=== PATIENT | female | born 1995 | race Caucasian/White ===

== ENCOUNTER 2017-08-21 17:15 | Inpatient (IN) | payer OTHER ==
[~2017-08-21] VITALS: Ht 149.9 cm; Wt 97.7 kg
[~2017-08-21 17:15] MED LIST: EPP3/2 IM
[2017-08-21] MEDS ORDERED: LACTATED RINGER'S 1000ML 1,000 ML IV SCH ×2 (17:37→19:55)
[2017-08-21] MEDS ORDERED: LACTATED RINGER'S 1000ML 1,000 ML IV PRN (17:37)
[2017-08-21] MEDS ORDERED: BUPIVACAINE 0.25% 30 ML VIAL ONE (17:53)
[2017-08-21] MEDS ORDERED: EpHEDrine SULFATE INJ 50 MG/ML AMP ONE (17:54)
[2017-08-21] MEDS ORDERED: FENTANYL 2MCG/ML ROPIV 1.25MG/ML 100ML BAG ONE (17:54)
[2017-08-21] MEDS ORDERED: FENTANYL CITRATE INJ 50 MCG/1 ML 2 ML VIAL ONE (17:54)
[2017-08-21 17:59] LABS: HEMATOCRIT 34.9 % (37-47); HEMOGLOBIN 12.4 g/dL (12.0-16.0); MEAN CELL VOLUME 91.4 fL (80-100); MEAN CORPUSCULAR HEMOGLOBIN 32.5 pg (25-34); MEAN CORPUSCULAR HGB CONC 35.5 g/dl (32-36); MEAN PLATELET VOLUME 9.7 fL (7.4-10.4); PLATELET COUNT 158 K/uL (130-400); RED CELL DISTRIBUTION WIDTH CV 14.1 % (11.5-14.5); RED CELL DISTRIBUTION WIDTH SD 46.1 fL (36.4-46.3); WHITE BLOOD COUNT 9.24 K/uL (4.8-10.8)
[2017-08-21] MEDS ORDERED: NALOXONE HCL INJ 1 MG in SODIUM CHLORIDE 0.9% 1000ML 1,000 ML IV PRN (19:05)
[2017-08-21] MEDS ORDERED: LACTATED RINGER'S 1000ML 500 ML IV PRN (19:05)
[2017-08-21] MEDS ORDERED: NALBUPHINE HCL INJ 10 MG/ML AMP IV PRN (19:15)
[2017-08-21] MEDS ORDERED: ONDANSETRON INJ 2 MG/ML 2 ML VIAL IV PRN (19:15)
[2017-08-21] MEDS ORDERED: DiphenhydrAMINE HCL 50 MG/ML VIAL IV PRN (19:15)
[2017-08-21] MEDS ORDERED: NALOXONE HCL INJ 0.4 MG/1 ML VIAL/CARP IV PRN (19:15)
[2017-08-21] MEDS ORDERED: FENTANYL 2MCG/ML ROPIV 1.25MG/ML 100ML BAG EPI PRN (19:15)
[2017-08-21] MEDS ORDERED: EpHEDrine SULFATE INJ 50 MG/ML AMP IV PRN (19:15)
[2017-08-21] MEDS ORDERED: OXYTOCIN 30 UNITS/500ML NSS IV ONE (19:46)
[2017-08-21] MEDS ORDERED: METHYLERGONOVINE MALEATE 0.2 MG/ML AMP ONE (19:48)
[2017-08-21] MEDS: DOCUSATE SODIUM 100 MG CAP PO SCH (20:00)
[2017-08-21] MEDS ORDERED: OXYTOCIN 30 UNITS/500ML NSS IV PRN (20:00)
[2017-08-21] MEDS ORDERED: LANOLIN OINT EXT PRN (20:00)
[2017-08-21] MEDS ORDERED: ACETAMINOPHEN 325 MG TAB PO PRN (20:00)
[2017-08-21] MEDS ORDERED: HYDROCORTISONE ACETATE 25 MG SUPP PR PRN (20:00)
[2017-08-21] MEDS ORDERED: MEASLES, MUMPS & RUBELLA VIRUS VIAL SQ. ONE (20:00)
[2017-08-21] MEDS ORDERED: METHYLERGONOVINE MALEATE 0.2 MG/ML AMP IM ONE (20:00)
[2017-08-21] MEDS ORDERED: DIPHTHERIA/TETANUS/PERTUSSIS 0.5 ML SYR/VIAL IM. ONE (20:00)
[2017-08-21] MEDS ORDERED: BENZOCAINE 20% AER SPR 82.5 GM CAN EXT PRN (20:00)
[2017-08-21] MEDS ORDERED: SUPERCREAM 0.870 % 15GM JAR EXT PRN (20:00)
[2017-08-21] MEDS ORDERED: OXYCODONE/ACETAMINOPHEN 5-325 TAB PO PRN (20:00)
--- NOTE | 2017-08-21 20:24 | Anesthesia Procedure Note ---
Anesthesia Epidural Removal Nt Date & Time August 21, 2017 at 20:23 Vital Signs Pain Intensity: 10.0 Notes Mental Status: alert / awake / arousable, participated in evaluation Nausea / Vomiting: adequately controlled Pain: adequately controlled Airway Patency, RR, SpO2: stable & adequate BP & HR: stable & adequate Hydration State: stable & adequate Neuraxial Anesthesia: was administered Anesthetic Complications: no major complications apparent, pt satisfied with anesthetic care Epidural: removed without complications, with tip intact
--- NOTE | 2017-08-21 20:51 | DELIVERY SUMMARY ---
DATE OF OPERATION: 08/21/2017 DATE OF DELIVERY: 08/21/2017. TIME OF DELIVERY OF BABY: 19:41 p.m. TIME OF DELIVERY OF PLACENTA: 19:45 p.m. DETAILS OF DELIVERY: Patient was found to be fully dilated and desired to push. She pushed through with 3 contractions and then delivered the head without difficulty. Shoulders were delivered with minimal traction. Baby was handed off to the mother where mouth and nose were suctioned. Cord was clamped x2 and cut. It was 3-vessel cord. Cord blood was obtained. Then the perineum and vagina were checked for lacerations. There was a superficial first degree laceration superior to the urethral opening between the labia minora fusion and then placenta was found to be in the vagina and delivered spontaneously as intact and complete. Uterus was explored and was found to be empty. Fundus was firm. EBL was 300 ml. That laceration was repaired with 3-0 Vicryl on the SH needle with figure-of- eight stitches x2. Excellent hemostasis was achieved. Mom and baby tolerated the procedure well. Sponge, lap, and needle counts were correct x2. Baby was a viable female infant. Apgars 8/9. No complications happened and I was present during whole procedure. I attest to the content of the Intraoperative Record and any orders documented therein. Any exceptions are noted below. MTDD
[2017-08-21 21:08] VITALS: Ht 149.9 cm; Wt 97.7 kg
[2017-08-21 23:25] VITALS: BP 130/69; PULSE 90; TEMP 36.5
[2017-08-21] MEDS: IBUPROFEN 600 MG TAB PO PRN (23:29)
[2017-08-22 03:50] VITALS: BP 110/56; PULSE 65; TEMP 36.9
[2017-08-22] MEDS: IBUPROFEN 600 MG TAB PO PRN ×4 (04:12→23:45)
[2017-08-22 07:08] LABS: HEMATOCRIT 32.3 % (37-47); HEMOGLOBIN 11.5 g/dL (12.0-16.0)
[2017-08-22 07:58] VITALS: BP 113/64; PULSE 65; TEMP 36.5
[2017-08-22] MEDS: PRENATAL VITAMIN TAB PO SCH (08:45)
[2017-08-22] MEDS: FERROUS SULFATE 325 MG TAB PO SCH (08:45)
[2017-08-22] MEDS: DOCUSATE SODIUM 100 MG CAP PO SCH ×2 (08:45→19:48)
--- NOTE | 2017-08-22 09:28 | OB/GYN Progress Note ---
SUPERVISOR Progress Note Date of Service August 22, 2017. Subjective conversation w/ patient, physical exam Ambulation: ambulating normally Voiding: no voiding problems Passing Gas: Yes Diet Tolerance: Regular Diet Lochia: Small Feeding Type: Breast Feeding Objective Vital Signs Date Time Temp Pulse Resp B/P (MAP) Pulse Ox O2 Delivery O2 Flow Rate FiO2 08/22/17 07:58 36.5 65 20 113/64 (80) Room Air 08/22/17 07:30 Room Air 08/22/17 03:50 36.9 65 18 110/56 (74) Room Air 08/21/17 23:25 36.5 90 16 130/69 (89) Room Air 08/21/17 23:25 Room Air Physical Exam General Appearance: WELL-APPEARING, NO APPARENT DISTRESS Abdomen: non tender, soft, no organomegaly, no pulsatile mass Fundus: Firm Extremities: non-tender, normal inspection, no pedal edema Laboratory Results Last 24 Hours Test 08/21/17 17:46 08/22/17 06:14 White Blood Count 9.24 K/uL Red Blood Count 3.82 M/uL Hemoglobin 12.4 g/dL 11.5 g/dL Hematocrit 34.9 % 32.3 % Mean Corpuscular Volume 91.4 fL Mean Corpuscular Hemoglobin 32.5 pg Mean Corpuscular Hemoglobin Concent 35.5 g/dl RDW Standard Deviation 46.1 fL RDW Coefficient of Variation 14.1 % Platelet Count 158 K/uL Mean Platelet Volume 9.7 fL Assessment and Plan Post- Day Number: 1 Continue Routine Care: discharge in AM
[2017-08-22 11:30] VITALS: BP 114/68; PULSE 62; TEMP 36.8
[2017-08-22 15:10] VITALS: BP 116/73; PULSE 77; TEMP 36.6; O2SAT 97
[2017-08-22] MEDS ORDERED: BISACODYL 5 MG TABEC PO SCH (20:00)
[2017-08-22 20:20] VITALS: BP 122/74; PULSE 61; TEMP 36.7
[2017-08-22 23:35] VITALS: BP 117/70; PULSE 51; TEMP 36.5
[2017-08-23 06:32] LABS: HEMATOCRIT 31.1 % (37-47); HEMOGLOBIN 10.7 g/dL (12.0-16.0); MEAN CELL VOLUME 93.7 fL (80-100); MEAN CORPUSCULAR HEMOGLOBIN 32.2 pg (25-34); MEAN CORPUSCULAR HGB CONC 34.4 g/dl (32-36); MEAN PLATELET VOLUME 9.5 fL (7.4-10.4); PLATELET COUNT 146 K/uL (130-400); RED CELL DISTRIBUTION WIDTH CV 14.3 % (11.5-14.5); RED CELL DISTRIBUTION WIDTH SD 48.8 fL (36.4-46.3); WHITE BLOOD COUNT 9.68 K/uL (4.8-10.8)
[2017-08-23] MEDS ORDERED: BISACODYL 10 MG SUPP PR PRN (07:00)
[2017-08-23] MEDS: FERROUS SULFATE 325 MG TAB PO SCH (08:00)
[2017-08-23 08:13] VITALS: BP 101/66; PULSE 65; TEMP 36.7
[2017-08-23] MEDS: DOCUSATE SODIUM 100 MG CAP PO SCH (08:44)
[2017-08-23] MEDS: PRENATAL VITAMIN TAB PO SCH (08:44)
[2017-08-23] MEDS ORDERED: MTR600X PO (09:45)
--- NOTE | 2017-08-23 09:47 | Discharge Instructions ---
Discharge Instructions Date of Service August 23, 2017. Admission Reason for Admission: Check Labor Discharge Discharge Diagnosis / Problem: term delivered Discharge Goals Goal(s): Routine recovery after delivery Activity Recommendations Activity Limitations: as noted below Lifting Limitations: no more than 10 pounds Exercise/Sports Limitations: gradually increase as tolerated May Resume Sexual Activity: after follow-up appointment Shower/Bathe: no limitations Driving or Machine Use: resume 3 days after discharge . Instructions / Follow-Up Instructions / Follow-Up ACTIVITY RECOMMENDATIONS: * Gradual return to full activity over the next 2-3 weeks. * No lifting - nothing heavier than baby over the next 2-3 weeks. * Do not engage in vigorous exercise, sexual activity or sports until cleared by your physician. * Do not drive or operate any motorized equipment until cleared by your physician. * You may shower/bathe daily. BREAST CARE: If you are not breast feeding: * Wear a supportive bra 24 hours a day for one to two weeks. * Avoid stimulating your breasts and nipples as much as possible during the first few weeks after delivery. * When taking a shower, have the warm water hit your back, not breasts. * When your breasts feel full, apply ice packs. Usually three to four times a day helps ease the discomfort. * Take a mild pain medication (Tylenol/Motrin) when you are uncomfortable. If breast feeding: * Use breast milk to lubricate nipples. Lansinoh cream may be used for sore nipples. You do not need to remove cream prior to breast feeding. If using a different brand of cream, check the label for directions regarding removal of cream prior to nursing. * Wear a supportive bra. * If having problems with breasts or breast feeding, call a account consultant or your health care provider. EPISIOTOMY CARE: After delivery, if you have an episiotomy (stitches), the following steps will ease discomfort and aid healing. * For the first 24 hours after delivery, place ice packs next to your episiotomy to help reduce swelling. * After the first 24 hour-period, sitz baths, either portable or in the tub, are suggested. A shower with a shower arm sprayed over the episiotomy may be comforting. * Iva care should be done after each voiding and bowel movement. Squirt warm water from a plastic bottle over the perineum (region of the body between the anus and urinary opening) and pat dry. * Use Dermoplast to ease discomfort. Shake container. [place] directly over the episiotomy. * Place a Tucks on a clean sanitary pad next to your episiotomy. OVER THE COUNTER MEDICATION: * For discomfort or pain, you may use Acetaminophen (Tylenol), Ibuprofen (Advil ), or Naproxen (Aleve) following the package directions. * For constipation you may use Colace following the package directions. SPECIAL CARE INSTRUCTIONS: When you are discharged from the hospital, it is important for you to follow the instructions listed below: * During the first week at home, you should be able to care for yourself and your baby. In addition, the usual light household activities are encouraged. * Limit your activities to the way you feel. Do not try to clean the house or move furniture. Be sensible. * If you actively engage in sports and have done so up until the time of your delivery, you may resume these activities as soon as you feel able. This may take up to one month or even longer. Use good judgment. * Continue to take your vitamins for at least six weeks after the of your baby. * Your diet need not be limited unless you were on a special diet before your delivery. Breast-feeding mothers need around 2500 calories per day and at least 64-80 ounces of fluid per day (8 to 10 glasses). * You should eat foods from the four major food groups. Crash diets or fad diets are to be avoided. Eating lean meats, fresh fruits and vegetables, low-fat dairy products, high fiber foods and a regular exercise program, will help you get back to your pre- weight without putting your health at risk. * Constipation is sometimes a problem after delivery. Take a mild laxative as needed. If breast feeding, Milk of Magnesia is acceptable to use. You may use a suppository or Fleets enema if no episiotomy. * A daily shower or tub bath is suggested. Be sure to thoroughly and gently dry the perineum. * A bloody vaginal discharge will usually continue until around four weeks post . A small amount of bleeding may continue for as long as six weeks. Vaginal discharge changes from the bright red bleeding after delivery to pink then brownish and finally yellowish-pink before becoming white and disappearing. * Bleeding may increase with activity. Your first period may come in 4-8 weeks. If you are breast feeding, your period may be delayed even longer. * [place] (sex) can begin whenever both you and your partner feel comfortable and do not have any form of genital infection. It is recommended that you wait until after your return appointment and discuss with your physician. If you have questions, please talk to your health care practitioner. A condom should be used to prevent infection and . * Foreplay, gentle intercourse and lubrication is very important the first several times to prevent pain. A water-based lubricant such as K-Y jelly or Astroglide may be used. * Tampons may be used six weeks after delivery. * Douching should be avoided for 6 weeks after delivery. * If you have RH negative blood and your baby is RH positive, you will receive RHOGAM by injection prior to discharge. The nurse will give you a card to keep with you that has the date and place that you received RHOGAM after delivery. * During your care, you had a Rubella screen done to check for the presence of rubella antibodies in your blood. If your test was negative, you will receive a Rubella vaccine prior to discharge. This vaccine may cause a fever, soreness at the injection site and flu-like symptoms. If these symptoms persist, notify your health care practitioner. is not advised for three months after a Rubella vaccine. There is a higher chance of having a baby with defects if conceived within three months of getting the vaccine. * If you were discharged 24 hours from delivery or before 48 hours: Visiting nurses will come to your home 48 hours after discharge to assess you and your baby. The visiting nurse will meet with you while you are in the hospital to arrange a time and get directions to your home. * Verbalizes understanding of car seat law as reviewed with patient nursing. * Car Seat hand-out given and reviewed with patient by nursing. * Shaken baby information reviewed with patient by nursing. Call you doctor if: * Heavy bleeding (saturating several pads an hour) or passing clots the size of your fist. * A fever >101 degrees F (38.3 degrees C) on two occasions four hours apart and/or chills. * Unusual pain in the pelvic or vaginal areas. * "Baby Blues" lasting longer than two weeks. If you have any questions or concerns, call your health care practitioner at . FOLLOW-UP VISIT: * Please call the office at to schedule a 6 week examination. It is important you keep this appointment. * It is important for you to make arrangements for either yearly or twice yearly check-ups thereafter. Current Hospital Diet Patient's current hospital diet: Regular OB Diet Discharge Diet Recommended Diet: Regular OB Diet Pending Studies Studies pending at discharge: no Medical Emergencies . Who to Call and When: Medical Emergencies: If at any time you feel your situation is an emergency, please call 911 immediately. . Non-Emergent Contact Non-Emergency issues call your: Primary Care Provider . . "Provider Documentation" section prepared by Eugenio Green. .
--- NOTE | 2017-08-23 09:48 | OB/GYN Progress Note ---
LUMBER CHECKER Progress Note Date of Service August 23, 2017. Subjective conversation w/ patient, physical exam Ambulation: ambulating normally Passing Gas: Yes Diet Tolerance: Regular Diet Lochia: Small Feeding Type: Breast Feeding Objective Vital Signs Date Time Temp Pulse Resp B/P (MAP) Pulse Ox O2 Delivery O2 Flow Rate FiO2 08/23/17 08:13 36.7 65 20 101/66 (78) Room Air 08/22/17 23:35 Room Air 08/22/17 23:35 36.5 51 20 117/70 (86) Room Air 08/22/17 20:20 36.7 61 20 122/74 (90) Room Air 08/22/17 15:10 36.6 77 20 116/73 (87) 97 Room Air 08/22/17 15:10 97 Room Air 08/22/17 11:30 36.8 62 18 114/68 (83) Room Air Physical Exam General Appearance: WD/WN, NO APPARENT DISTRESS Abdomen: non tender, soft, no organomegaly Fundus: Firm Extremities: non-tender, normal inspection, no pedal edema, no calf tenderness Laboratory Results Last 24 Hours Test 08/23/17 05:57 White Blood Count 9.68 K/uL Red Blood Count 3.32 M/uL Hemoglobin 10.7 g/dL Hematocrit 31.1 % Mean Corpuscular Volume 93.7 fL Mean Corpuscular Hemoglobin 32.2 pg Mean Corpuscular Hemoglobin Concent 34.4 g/dl RDW Standard Deviation 48.8 fL RDW Coefficient of Variation 14.3 % Platelet Count 146 K/uL Mean Platelet Volume 9.5 fL Assessment and Plan Post- Day Number: 2 Continue Routine Care: discharged
[2017-08-23 11:37] VITALS: BP_DIAS 66; PULSE 65; TEMP 36.7
[2017-08-23 11:41] VITALS: BP 101/66; PULSE 65; TEMP 36.7; O2SAT 97
== END 2017-08-23 12:43 | disposition home or self-care (01) | DRG 775 ==
LOC: C.LD 17:15 → C.OPB 17:15 → C.LD 17:38 → C.OBG 23:19
PROVIDERS: ADMIT Obstetrics & Gynecology; ATTEND Obstetrics & Gynecology
PROC: 0HQ9XZZ Repair Perineum Skin, External Approach (ICD-10-PCS; principal; 2017-08-21)
PROC: 10E0XZZ Delivery of Products of Conception, External Approach (ICD-10-PCS; principal; 2017-08-21)
DX: O70.0 First degree perineal laceration during delivery (principal); Z37.0 Single live birth; Z3A.39 39 weeks gestation of pregnancy

== ENCOUNTER 2019-03-10 07:49 | Inpatient (IN) ==
[2019-03-10] MEDS ORDERED: OXYTOCIN 30 UNITS/500 ML BAG IV PRN ×3 (08:32→17:01)
--- NOTE | 2019-03-10 08:38 | History & Physical Report ---
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, NK cell deficiency, I discussed with ID, recommended Vancomycin Plan admit, monitor, Labs, Pitocin Anticipate (2) GBS (group B Streptococcus carrier), +RV culture, currently : History of Present Illness Primary Care Provider: Sarabjit Terrazas MD Patient is a 24 yo at 39.6 wks who is being admitted for IOL at term Feels irregular ctxs, no LOF/VB +FM No BROCK/ change in vision/ N&V/ Epigastric or RUQ pain Her has been uncomplicated except 1) GBS+ 2) h/o immunodeficiency , NK cell deficiency 3) Class II obesity Allergies Allergy/AdvReac Type Severity Reaction Status Date / Time amoxicillin Allergy Severe Swollen Verified 08/21/17 20:57 eyes,rash and hives. peanut Allergy Severe SHORTNESS Verified 08/21/17 20:57 OF BREATH latex Allergy Unknown Swelling,redness Verified 08/21/17 20:57 and hives. Flu Virus Vaccine Allergy Severe Shingles Uncoded 08/21/17 20:57 reaction. Home Medications Home Medications Medication Instructions Recorded Confirmed Type vit-iron fum-folic ac 1 tab PO DAILY 03/10/19 03/10/19 History [ Vitamin] Patient History Medical History Allergic rhinitis Asthma Atopic dermatitis GERD (gastroesophageal reflux disease) HSV-1 (herpes simplex virus 1) infection Immunodeficiency Insomnia Social History marital status: Single Feels Safe at Home: Yes Smoking Status: Never smoker Second Hand Exposure: No ; Hx Alcohol Use: No Hx Substance Use: No OB History FT in 2014 and 2017 [employer] History Denies any ho STD's including HSV Review of Systems All systems reviewed & are unremarkable except as noted in HPI & below Physical Exam Constitutional: WD/WN, vitals as above well developed and well nourished Comfortably smiling Gastrointestinal (Abdomen): Abd: soft, NT, Gravid Musculoskeletal: no cyanosis or clubbing, extremities motor strength 5/5 Extremities: extremities normal to inspection Genitourinary: normal external appearance VE; 3-4 cm/ 50%/ -3, posterior Results & Data Vital Signs (Past 12 Hours) Vital Signs Temp Pulse Resp BP 03/10/19 08:02 36.8 C 88 20 127/81 Monitoring External Monitor 130's reactive Tocodynamometer Irregular ctxs q 10 -15 min
[2019-03-10] MEDS ORDERED: VANCOMYCIN CONSULT ACTIVE PRN (08:49)
[2019-03-10 08:59] LABS: Hematocrit (blood only) 36.5 % (37-47); Hemoglobin 12.6 g/dL (12.0-16.0); Mean Corpuscular Hemoglobin 32.6 pg (25-34); Mean Corpuscular Volume 94.3 fL (80-100); Mean Platelet Volume 10.1 fL (7.4-10.4); Platelet Count 159 K/uL (130-400); RDW Coefficient of Variation 14.4 % (11.5-14.5); RDW Standard Deviation 48.6 fL (36.4-46.3); Red Blood Count 3.87 M/uL (4.2-5.4); White Blood Count 9.39 K/uL (4.8-10.8)
[2019-03-10] MEDS ORDERED: VANCOMYCIN HCL 1,500 MG in SODIUM CHLORIDE 0.9% 250 ML IV SCH (09:00)
[2019-03-10 09:01] LABS: Mean Corpuscular Hgb Conc 34.5 g/dL (32-36)
--- NOTE | 2019-03-10 09:39 | Pharmacy Report ---
Pharmacy Abx Initial Consult - Date of Service March 10, 2019 - Pharmacy Dosing Scope Date of Consult: 03/10 Consultation requested by: Dr. Lambert Pharmacy is consulted to initiate vancomycin IV/PO dosing therapy, order appropriate labs and adjust drug dose/frequency. - Subjective The patient is a 24 year old F admitted on 03/10/19 07:49. - Objective Vital Signs (Past 12hrs): Vital Signs Temp Pulse Resp BP 03/10/19 08:02 36.8 C 88 20 127/81 Lab Results (24hrs): Laboratory Tests (24 Hours) 03/10/19 08:47 WBC 9.39 - Risk Factors for Resistance * Immunocompromised (hx nk cell deficiency) - Assessment & Plan Assessment 24 year old, elective induction of labor planned, GBS positive (allergy to amoxicillin). Per provider notes discussed with ID and recommend vancomycin due to allergy. Guidelines recommend prophylaxis of GBS with vancomycin IV for use in pcn allergic patient with - 20 mg/kg at onset of labor/prelabor than every 8 hrs until delivery or 2 gm iv x 1 followed by 1 g every 12 hrs until delivery Plan Vancomycin IV * Will give vancomycin 2000 mg x 1 (~20 mg/kg) dose now - nurse verified patient weight 222 lbs (~100 kg) * Will then start 1 gm iv q 12 hrs until delivery - dosing recommended per guidelines / unable to utilize pharmacokinetic data in patient population due to altered kinetics because of * Patient afebrile at this time - will continue to follow Pharmacy will continue to follow and will adjust dose/frequency as necessary. Thank you.
[2019-03-10] MEDS ORDERED: VANCOMYCIN HCL 2,000 MG in SODIUM CHLORIDE 0.9% 500 ML IV ONE (10:00)
[2019-03-10] MEDS: LACTATED RINGER'S 1,000 ML IV PRN ×2 (10:06→14:00)
[2019-03-10 10:21] LABS: Est GFR (African American) > 150.0; Est GFR (Non-African American) 131.3
[2019-03-10] MEDS ORDERED: BUPIVACAINE 0.25% 30 ML VIAL ONE (13:34)
[2019-03-10] MEDS ORDERED: ePHEDrine sulfate 50 MG/ML AMP ONE (13:34)
[2019-03-10] MEDS ORDERED: fentaNYL citrate 100 MCG/2 ML VIAL ONE (13:34)
[2019-03-10] MEDS ORDERED: fentaNYL 2MCG/ML ROPIV 1.25MG/ML 100 ML BAG EPI ONE (13:35)
--- NOTE | 2019-03-10 14:25 | Anesthesiology Consultation ---
Date of Service March 10, 2019 Assessment & Plan Chart Review Chart Review: Acceptable Risk for Labor Epidural Consults Requested none History Height/Weight Height: 4 ft 11 in Weight: 100.891 kg Allergies Allergy/AdvReac Type Severity Reaction Status Date / Time amoxicillin Allergy Severe Swollen Verified 08/21/17 20:57 eyes,rash and hives. peanut Allergy Severe SHORTNESS Verified 08/21/17 20:57 OF BREATH latex Allergy Unknown Swelling,redness Verified 08/21/17 20:57 and hives. Flu Virus Vaccine Allergy Severe Shingles Uncoded 08/21/17 20:57 reaction. Medications Home Medications Medication Instructions Recorded Confirmed Last Taken EpiPen 1 pen SC ONCE PRN 03/10/19 03/10/19 Unknown albuterol sulfate [Proventil HFA] 2 puff INHALATION Q4 PRN 03/10/19 03/10/19 Unknown vit-iron fum-folic ac 1 tab PO DAILY 03/10/19 03/10/19 03/10/19 06:00 [ Vitamin] Active Medications Generic Name Dose Route Start Last Admin Trade Name Josafatq PRN Reason Stop Dose Admin Lactated Ringer's 1,000 mls @ 150 mls/hr 03/10/19 08:32 03/10/19 14:00 Lr IV 03/12/19 08:31 150 mls/hr .[id number] PRN Administration L&D Protocol Protocol Oxytocin 30 units in 500 mls @ 166.667 mls/hr 03/10/19 08:39 03/10/19 12:51 Pitocin IV 03/12/19 08:38 10 units/hr .Q3H PRN 166.7 mls/hr Labor Induction/Augmentation Titration Protocol 10 UNITS/HR Past Medical History Medical History Allergic rhinitis Asthma Atopic dermatitis Eczema GERD (gastroesophageal reflux disease) HSV-1 (herpes simplex virus 1) infection Immunodeficiency Insomnia Intestinal disaccharidase deficiency Migraine Short stature Past Surgical History Surgical History (Updated 03/10/19 @ 11:31 by Vida Reynolds, BG) History of esophagogastroduodenoscopy History of fundoplication History of tonsillectomy and adenoidectomy Social History Smoking Status: Never smoker Hx Alcohol Use: No Hx Substance Use: No substance use type: does not use Physical Exam Vital Signs Last Vital Signs Temp 36.8 C 03/10/19 11:53 Pulse 96 H 03/10/19 14:23 Resp 20 03/10/19 11:53 BP 134/67 03/10/19 14:23 Pulse Ox 96 03/10/19 14:20 Testing Laboratory Results 03/10/19 08:47 03/10/19 09:38
[2019-03-10] MEDS ORDERED: NALBUPHINE HCL INJ 10 MG/ML AMP IV PRN (14:26)
[2019-03-10] MEDS ORDERED: NALOXONE HCL 1 MG in SODIUM CHLORIDE 0.9% 1000ML 1,000 ML IV PRN (14:26)
[2019-03-10] MEDS ORDERED: fentaNYL 2MCG/ML ROPIV 1.25MG/ML 100 ML BAG EPI PRN (14:26)
[2019-03-10] MEDS ORDERED: DiphenhydrAMINE HCL 50 MG/ML VIAL IV PRN (14:26)
[2019-03-10] MEDS ORDERED: NALOXONE HCL 0.4 MG/1 ML VIAL/CARP IV PRN (14:26)
[2019-03-10] MEDS ORDERED: ePHEDrine sulfate 50 MG/ML AMP IV PRN (14:26)
--- NOTE | 2019-03-10 15:24 | Obstetrical Progress Note ---
Date of Service March 10, 2019 Subjective Patient is reevaluated She received epidural and comfortable [place] pressure VE; 5/ 60%/ -2, tight bag, AROM'ed, clear fluid, abundant FHR 140's, good variability and accels [place] ctxs q 2-3 min, pitocin is at 10 miu/min Continue to monitor closely Results & Data Vital Signs (Past 12 Hours) Vital Signs Temp Pulse Resp BP Pulse Ox 03/10/19 15:20 117 H 99 03/10/19 15:15 95 H 99 03/10/19 15:13 90 122/66 03/10/19 15:10 79 97 03/10/19 15:05 83 98 03/10/19 15:00 92 H 127/70 99 03/10/19 14:55 84 98 03/10/19 14:50 77 98 03/10/19 14:45 85 98 03/10/19 14:43 36.8 C 85 20 126/60 03/10/19 14:41 83 126/60 03/10/19 14:40 86 98 03/10/19 14:39 92 H 122/57 L 03/10/19 14:37 82 119/60 03/10/19 14:35 96 H 187/128 H 97 03/10/19 14:31 85 125/61 03/10/19 14:30 88 98 03/10/19 14:29 93 H 124/65 03/10/19 14:27 100 H 128/65 03/10/19 14:25 93 H 124/57 L 97 03/10/19 14:23 96 H 134/67 03/10/19 14:21 104 H 132/67 03/10/19 14:20 96 H 96 03/10/19 14:19 87 125/62 03/10/19 14:17 89 118/61 03/10/19 14:15 90 117/79 96 03/10/19 14:13 102 H 110/68 03/10/19 14:11 108 H 126/78 03/10/19 14:10 96 H 98 03/10/19 14:08 96 H 125/82 03/10/19 14:05 81 98 03/10/19 14:03 83 120/87 03/10/19 14:00 94 H 98 03/10/19 13:55 97 H 99 03/10/19 13:50 91 H 99 03/10/19 13:49 86 112/78 03/10/19 11:53 36.8 C 88 20 127/81 03/10/19 08:02 36.8 C 88 20 127/81
--- NOTE | 2019-03-10 16:26 | Obstetrical Progress Note ---
Date of Service March 10, 2019 Subjective Patient is reevaluated FHR had early decel with ctxs, but has good variability VE; 5-6 cm/ 89%/ -2 Bladder was emptied 400 ml urine was obtained Continue to monotor closely Results & Data Vital Signs (Past 12 Hours) Vital Signs Temp Pulse Resp BP Pulse Ox 03/10/19 16:20 85 97 03/10/19 16:15 87 98 03/10/19 16:14 80 101/52 L 03/10/19 16:10 94 H 97 03/10/19 16:05 79 97 03/10/19 16:00 83 96 03/10/19 15:58 82 105/53 L 03/10/19 15:55 80 96 03/10/19 15:50 83 97 03/10/19 15:45 94 H 97 03/10/19 15:43 83 102/54 L 03/10/19 15:40 86 97 03/10/19 15:35 89 96 03/10/19 15:30 90 97 03/10/19 15:29 91 H 110/55 L 03/10/19 15:25 101 H 98 03/10/19 15:20 117 H 99 03/10/19 15:15 95 H 99 03/10/19 15:13 90 122/66 03/10/19 15:10 79 97 03/10/19 15:05 83 98 03/10/19 15:00 92 H 127/70 99 03/10/19 14:55 84 98 03/10/19 14:50 77 98 03/10/19 14:45 85 98 03/10/19 14:43 36.8 C 85 20 126/60 03/10/19 14:41 83 126/60 03/10/19 14:40 86 98 03/10/19 14:39 92 H 122/57 L 03/10/19 14:37 82 119/60 03/10/19 14:35 96 H 187/128 H 97 03/10/19 14:31 85 125/61 03/10/19 14:30 88 98 03/10/19 14:29 93 H 124/65 03/10/19 14:27 100 H 128/65 03/10/19 14:25 93 H 124/57 L 97 03/10/19 14:23 96 H 134/67 03/10/19 14:21 104 H 132/67 03/10/19 14:20 96 H 96 03/10/19 14:19 87 125/62 03/10/19 14:17 89 118/61 03/10/19 14:15 90 117/79 96 03/10/19 14:13 102 H 110/68 03/10/19 14:11 108 H 126/78 03/10/19 14:10 96 H 98 03/10/19 14:08 96 H 125/82 03/10/19 14:05 81 98 03/10/19 14:03 83 120/87 03/10/19 14:00 94 H 98 03/10/19 13:55 97 H 99 03/10/19 13:50 91 H 99 03/10/19 13:49 86 112/78 03/10/19 11:53 36.8 C 88 20 127/81 03/10/19 08:02 36.8 C 88 20 127/81
[2019-03-10] MEDS ORDERED: MEASLES, MUMPS & RUBELLA VIRUS VIAL SQ ONE (17:01)
[2019-03-10] MEDS ORDERED: HYDROCORTISONE ACETATE 25 MG SUPP PR PRN (17:01)
[2019-03-10] MEDS ORDERED: bisacodyL 10 MG SUPP PR PRN (17:01)
[2019-03-10] MEDS ORDERED: SUPERCREAM 0.870% 15 GM JAR EXT PRN (17:01)
[2019-03-10] MEDS ORDERED: BENZOCAINE 20% AER SPR 82.5 GM CAN EXT PRN (17:01)
[2019-03-10] MEDS ORDERED: DIPHTHERIA/TETANUS/PERTUSSIS 0.5 ML SYR/VIAL IM ONE (17:01)
[2019-03-10] MEDS ORDERED: LACTATED RINGER'S 1,000 ML IV SCH (17:15)
--- NOTE | 2019-03-10 19:11 | Anesthesia Procedure Note ---
Date of Service March 10, 2019 Anesthesia Post Epidural Note Vital Signs Vital Signs: Temp Pulse Resp BP Pulse Ox 36.8 C 102 H 20 125/59 L 87 L 03/10/19 14:43 03/10/19 18:58 03/10/19 17:44 03/10/19 18:58 03/10/19 16:44 Notes Mental Status: alert / awake / arousable Nausea / Vomiting: adequately controlled Pain: adequately controlled Airway Patency, RR, SpO2: stable & adequate BP & HR: stable & adequate Hydration State: stable & adequate Neuraxial Anesthesia: was administered and sensory block is resolving Anesthetic Complications: no major complications apparent and Pt Satisfied with anesthetic care Epidural: Removed without complications and With tip intact
--- NOTE | 2019-03-10 19:17 | Delivery Summary ---
DATE OF OPERATION: 03/10/2019 TIME OF DELIVERY OF BABY: 16:44 p.m. TIME OF DELIVERY OF PLACENTA: 16:54 p.m. DETAILS OF DELIVERY: The patient was found to be fully dilated and desired to push. She pushed for only once and delivered the head without difficulty. Shoulders came right after the head and baby was handed off to the mother where mouth and nose were suctioned. Cord was clamped x2 and cut. It was 3 vessels cord. Cord blood was obtained. Vagina and perineum were checked for lacerations. There was only a tiny first degree labial laceration superiorly on the fusion of labia. Those were repaired with 3-0 Vicryl and SH needle with [id number] stitches x3. Excellent hemostasis was achieved. Placenta was found to be in the vagina, delivered spontaneous as intact and complete. Uterus was explored, found to be empty. Lower segment was cleared of all clots and debris. EBL was 100 mL. Mom and baby tolerated the procedure well. Sponge, lap and needle count was correct x2. Baby was a viable female , Apgars 9/9. 3453 gr. No complications happened and I was present during whole procedure. I attest to the content of the Intraoperative Record and any orders documented therein. Any exceptions are noted below. MTDD
[2019-03-10] MEDS: DOCUSATE SODIUM 100 MG CAP PO SCH (20:56)
[2019-03-10] MEDS: IBUPROFEN 600 MG TAB PO PRN (21:12)
[2019-03-10] MEDS ORDERED: VANCOMYCIN HCL 1,500 MG in SODIUM CHLORIDE 0.9% 500 ML IV SCH (22:00)
[2019-03-11] MEDS: ACETAMINOPHEN 325 MG TAB PO PRN ×2 (00:22→19:51)
[2019-03-11] MEDS: IBUPROFEN 600 MG TAB PO PRN ×4 (02:52→17:25)
[2019-03-11 07:38] LABS: Hematocrit (blood only) 33.3 % (37-47); Hemoglobin 11.5 g/dL (12.0-16.0); Mean Corpuscular Hemoglobin 32.3 pg (25-34); Mean Corpuscular Hgb Conc 34.5 g/dL (32-36); Mean Corpuscular Volume 93.5 fL (80-100); Mean Platelet Volume 10.5 fL (7.4-10.4); Platelet Count 129 K/uL (130-400); RDW Coefficient of Variation 14.5 % (11.5-14.5); RDW Standard Deviation 48.9 fL (36.4-46.3); Red Blood Count 3.56 M/uL (4.2-5.4); White Blood Count 9.21 K/uL (4.8-10.8)
[2019-03-11] MEDS: DOCUSATE SODIUM 100 MG CAP PO SCH ×2 (08:03→19:51)
[2019-03-11] MEDS: PRENATAL VITAMIN 1 TAB PO SCH (08:03)
[2019-03-11] MEDS: FERROUS SULFATE 325 MG TAB PO SCH (08:03)
--- NOTE | 2019-03-11 08:40 | Obstetrical Progress Note ---
Date of Service March 11, 2019 Assessment & Plan (1) normal course: PPd #1 pt doing well anticipate disch tomorrow Subjective Ambulation: ambulating normally Voiding: no voiding problems Passing Gas:: Yes Diet Tolerance:: regular diet Lochia:: Small Feeding Type:: breast feeding Review of Systems All systems reviewed & are unremarkable except as noted in HPI & below Physical Exam Constitutional WD/WN, vitals as above well developed and well nourished Eyes PERRL, conjunctivae normal, anicteric sclerae Neck trachea midline, no thyromegaly Respiratory normal respiratory effort, lungs clear to auscultation Auscultation: no crackles, no rales and no wheezes Cardiovascular RRR, no murmur, no edema Gastrointestinal (Abdomen) normal bowel sounds, soft, nontender, no hepatosplenomegaly Uterus is below umbilicus Musculoskeletal no cyanosis or clubbing, extremities motor strength 5/5 Skin no rashes, warm and dry Neurologic patellar DTR's 2+ bilat, sensation intact Psychiatric A+Ox3, euthymic affect Genitourinary normal external appearance Results & Data Vital Signs (Past 12 Hours) Vital Signs Temp Pulse Pulse Resp BP BP Pulse Ox 03/11/19 07:52 36.5 C 67 18 111/71 98 03/11/19 04:15 36.5 C 60 18 110/73 03/11/19 00:15 36.5 C 75 17 139/84 99
[2019-03-11] MEDS ORDERED: bisacodyL 5 MG TABEC PO SCH (20:00)
[2019-03-12 06:42] LABS: Hemoglobin 11.5 g/dL (12.0-16.0)
[2019-03-12] MEDS: PRENATAL VITAMIN 1 TAB PO SCH (07:56)
[2019-03-12] MEDS: FERROUS SULFATE 325 MG TAB PO SCH (07:56)
[2019-03-12] MEDS: IBUPROFEN 600 MG TAB PO PRN (07:56)
[2019-03-12] MEDS: DOCUSATE SODIUM 100 MG CAP PO SCH (07:56)
--- NOTE | 2019-03-12 09:24 | Obstetrical Progress Note ---
Date of Service March 12, 2019 Physical Exam Constitutional: WD/WN, vitals as above comfortable fundus firm abdomen non-tender neg edema neg Homans for discharge follow up in 2 weeks in office Results & Data Vital Signs (Past 12 Hours) Vital Signs Temp Pulse Resp BP Pulse Ox 03/11/19 23:30 36.5 C 64 14 114/72 98 Laboratory Results Laboratory Results - last 72 hr 03/10/19 03/10/19 03/11/19 08:47 09:38 07:19 WBC 9.39 9.21 RBC 3.87 L 3.56 L Hgb 12.6 11.5 L Hct 36.5 L 33.3 L MCV 94.3 93.5 MCH 32.6 32.3 MCHC 34.5 34.5 RDW Std Deviation 48.6 H 48.9 H RDW Coeff of Nathanael 14.4 14.5 Plt Count 159 129 L MPV 10.1 10.5 H Creatinine 0.55 L Est Cr Clr Drug Dosing Not Reportable Est GFR ( Amer) > 150.0 Est GFR (Non-Af Amer) 131.3 03/12/19 06:29 WBC RBC Hgb 11.5 L Hct 34.0 L MCV MCH MCHC RDW Std Deviation RDW Coeff of Nathanael Plt Count MPV Creatinine Est Cr Clr Drug Dosing Est GFR ( Amer) Est GFR (Non-Af Amer)
== END 2019-03-12 13:20 | disposition home or self-care (01) | DRG 807 ==
LOC: 4S1 07:49 → 4S2 20:08